=== PATIENT | female | born 2000 | race Two or more races ===

== ENCOUNTER 2023-12-09 16:10 | Emergency (ER) | payer OTHER ==
[~2023-12-09] VITALS: Ht 162.6 cm; Wt 58.1 kg
[2023-12-09] MEDS: IV NS 0.9% 1,000 ML BAG IV ONE (17:00)
[2023-12-09] MEDS: KETOROLAC TROMETHAMINE 15 MG/ML VIAL IV ONE (17:00)
[2023-12-09] MEDS ORDERED: KETOROLAC TROMETHAMINE INJ 30 MG/ML VIAL ONE (17:48)
[2023-12-09 18:28] LABS: BASOPHILS # (AUTO) 0.1 K/uL (0.0-0.2); BASOPHILS % (AUTO) 1.5 % (0.0-2.0); EOSINOPHILS % (AUTO) 0.1 % (0.0-6.0); HEMATOCRIT 37 % (33-45); HEMOGLOBIN 11.1 g/dL (11.5-14.8); LYMPHOCYTES # (AUTO) 0.8 K/uL (0.8-4.8); LYMPHOCYTES % (AUTO) 8.9 % (20.0-44.0); MEAN CORPUSCULAR HEMOGLOBIN 19 PG (26.0-33.0); MEAN CORPUSCULAR HGB CONC 30 g/dl (31.0-36.0); MEAN CORPUSCULAR VOLUME 61 fL (82-100); MONOCYTES # (AUTO) 0.2 K/uL (0.1-1.30); MONOCYTES % (AUTO) 2.2 % (2.0-12.0); NEUTROPHILS # (AUTO) 7.7 K/uL (1.8-8.9); NEUTROPHILS % (AUTO) 87.3 % (43.0-81.0); PLATELET COUNT (AUTO) 365 K/uL (150-450); RED CELL DISTRIBUTION WIDTH 26.8 % (11.5-15.0); WHITE BLOOD COUNT (AUTO) 8.8 K/uL (4.3-11.0)
[2023-12-09 18:41] LABS: CALCIUM, SERUM 9.6 mg/dL (8.5-10.1); CREATININE 0.7 mg/dL (0.6-1.3); POTASSIUM 3.9 mmol/L (3.5-5.1)
[2023-12-09 18:47] LABS: APPEARANCE,URINE CLOUDY (CLEAR); BILIRUBIN,URINE NEGATIVE (NEGATIVE); BLOOD, URINE 3+ Ery/uL (NEGATIVE); COLOR,URINE ORANGE (YELLOW); KETONES,URINE 2+ mg/dL (NEGATIVE); LEUKOCYTE ESTERASE ,URINE TRACE (NEGATIVE); NITRITE, URINE NEGATIVE (NEGATIVE); PH,URINE 8.5 (5.0-8.0); PROTEIN,URINE 1+ mg/dl (NEGATIVE); UGLUCOSE NEGATIVE (NEGATIVE)
[2023-12-09 19:33] LABS: ADD URINE CULTURE NO; BACTERIA,URINE 1+ /HPF (None Seen); MUCUS,URINE Few /LPF (None Seen); RBC,URINE 21-50 /HPF (0-2)
[2023-12-09] MEDS ORDERED: IBUP-1953 PO ×2 (19:39→19:50)
[2023-12-09 20:17] VITALS: BP 130/70; TEMP 98.2; O2SAT 99
[2023-12-09 21:59] LABS: ANISOCYTOSIS 1+; OVALOCYTES 1+; PLATELET ESTIMATE ADEQUATE
== END 2023-12-09 20:18 | disposition home or self-care (01) ==
LOC: ER 16:14
DX: N93.8 Other specified abnormal uterine and vaginal bleeding (principal); R10.2 Pelvic and perineal pain
CPT/HCPCS: 99285; 96374; 76856; 96361; 85025; 80048; 81001; 36415; 84702; J1885; J7030